=== PATIENT | male | born 1970 | race Caucasian/White ===

== ENCOUNTER → 2021-05-16 | Emergency (ER) | payer SELFPAY ==
[~2021-05-16] VITALS: Ht 170.2 cm; Wt 86.0 kg
[~2021-05-16] MED LIST: CIPROFLOXACIN 0.3% OPHTH SOLN 2.5ML LEFTEYE ONE; TETRACAINE 0.5% OPHTH DROPS 4ML LEFTEYE ONE
[2021-05-16 16:14] VITALS: BP 153/91
== END | disposition home or self-care (01) ==
LOC: EDUNIT# 16:02 → ER 16:02
DX: S05.02XA Injury of conjunctiva and corneal abrasion without foreign body, left eye, initial encounter (principal); H10.9 Unspecified conjunctivitis; H57.12 Ocular pain, left eye; X58.XXXA Exposure to other specified factors, initial encounter; Y93.89 Activity, other specified; Y92.89 Other specified places as the place of occurrence of the external cause; Y99.8 Other external cause status
CPT/HCPCS: 99283

== ENCOUNTER 2022-03-09 01:01 | Emergency (ER) | payer MEDICAID ==
[2022-03-09] MEDS ORDERED: SULF1TAB48 MT (15:37)
[2022-03-09] MEDS ORDERED: CEPH500C2 MT (15:37)
== END 2022-03-09 02:20 | disposition left against medical advice (07) ==
LOC: ER 01:15
DX: Z53.21 Procedure and treatment not carried out due to patient leaving prior to being seen by health care provider (principal)

== ENCOUNTER 2022-03-09 06:25 | Emergency (ER) | payer MEDICAID ==
[~2022-03-09] VITALS: Ht 170.2 cm; Wt 79.7 kg
[2022-03-09] MEDS ORDERED: KETOROLAC 30MG/ML VIAL IV STA (07:46)
[2022-03-09] MEDS ORDERED: TETANUS, DIPHTHERIA, PERTUSSIS VAC/PF 0.5ML (>10YR OLD) IM ONE (08:00)
[2022-03-09] MEDS ORDERED: SODIUM CHLORIDE 0.9% 1,000 ML IV ONE (08:00)
[2022-03-09] MEDS ORDERED: CEFAZOLIN 1000MG PREMIX 50 ML IV ONE (08:00)
[2022-03-09] MEDS ORDERED: CLINDAMYCIN 600 MG in DEXTROSE 5% WATER 50 ML IV ONE (08:00)
[2022-03-09] MEDS ORDERED: CLINDAMYCIN 600 MG PREMIX 50 ML IV NR (08:30)
[2022-03-09] MEDS ORDERED: MORPHINE SULFATE 4 MG/ML CPJ (NOT FOR IM USE) IV ONE (09:15)
[2022-03-09] MEDS ORDERED: ONDANSETRON HCL 4MG/2ML INJ IV ONE (09:15)
[2022-03-09 09:36] LABS: BASOPHILS % 0.4 % (0.0-2.0); EOSINOPHILS % 1.2 % (0.0-5.0); HEMATOCRIT. 41.2 % (42.0-52.0); HEMOGLOBIN. 13.3 g/dL (14.0-18.0); LYMPHOCYTES % 8.2 % (20.0-50.0); MEAN CORPUSCULAR HEMOGLOBIN 28.9 pg (28.0-32.0); MEAN CORPUSCULAR VOLUME 89.8 fL (80.0-94.0); MEAN PLATELET VOLUME 9.7 fl (7.4-10.4); MONOCYTES % 6.9 % (2.0-8.0); NEUTROPHILS % 83.3 % (40.0-76.0); PLATELET 217 x1000/uL (130-400); RED BLOOD CELL COUNT 4.59 mill/uL (4.7-6.1); RED CELL DISTRIBUTION WIDTH 13.6 % (11.6-14.6)
[2022-03-09 09:43] LABS: CHLORIDE 110 mEq/L (98-107)
[2022-03-09] MEDS ORDERED: CEPH500C2 MT (15:37)
[2022-03-09] MEDS ORDERED: SULF1TAB48 MT (15:37)
[2022-03-09 15:57] VITALS: BP 129/83
[2022-03-09] MEDS ORDERED: HYDROCODONE/ACETAMINOPHEN 5/325MG TABLET PO ONE (16:00)
== END 2022-03-09 15:58 | disposition left against medical advice (07) ==
LOC: ER 06:41
DX: L03.113 Cellulitis of right upper limb (principal)
CPT/HCPCS: 36415; 73130; 80053; 85025; 90471; 90715; 96365; 96368; 96375; 99284; J0690; J1885; J2270; J2405; J3490; J7030; J7060